=== PATIENT | male | born 1990 | race Caucasian/White ===

== ENCOUNTER 2025-05-14 11:16 | Outpatient (AMB) | payer OTHER, SELFPAY ==
--- NOTE | 2025-05-14 11:36 | MHC.PC.OV ---
Vital Signs 05/14/25 11:52 Height 5 ft 10.75 in Weight 250 lb 0.4 oz BMI 35.1 BP 129/59 L Blood Pressure Location Rt brachial Pulse 65 Pulse Source Pulse Oximeter Temp 98.2 F Intake Visit Reasons: Office visit, [employer]IST Intake Note: no issues Allergies Seasonal Allergies Allergy (Intermediate, Verified 05/14/25 16:43) Sneezing Medication List - Last Reconciled 05/14/25 by Angi Epps PA-C No Known Home Meds Dental Screening Dental Screen Date: 05/14/25 Did you have a dental visit in the last 12 months?: Yes Did you have a dental problem in the last 6 months where you did not have access to dental care?: No Was dental information given to patient?: Patient has dentist HPI HPI Comments History of Present Illness Details History of Present Illness The patient is a 34 year old male presenting for a physical exam and medical clearance required by the [facility]. The requirement stems from an incident last year where he received an OUI after driving under the influence following consumption of what he believed to be a counterfeit Percocet, which was later found to contain fentanyl. This resulted in an overdose requiring four doses of Narcan to revive him in the ambulance. The patient reports a history of substance use but states he has been sober for approximately two years and has not smoked marijuana in two years. He is currently attending 16 weeks of behavioral classes on [employer] as part of his requirements. This is his first visit with a doctor in approximately 10 years. Regarding family history, his paternal grandmother had a brain cancer tumor, and his brother from an overdose. He denies any known family history of colon cancer, breast cancer, or prostate cancer. Social History - Substance Use Alcohol: The patient obtained an OUI from drinking last year. - Substance Use Other: He had an unintentional overdose from a counterfeit Percocet (fentanyl) last year. 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 - Tobacco/Nicotine: He denies smoking marijuana for the past two years. - Exercise: The patient reports going to the gym. [facility] Medical History Healthcare maintenance Annual physical exam History of substance use Social History Alcohol intake: never Patient Tobacco Use Status: Never used Tobacco e-Cigarette/Vaping Use: Never Used Second Hand Smoke Exposure: No Questionnaire PHQ-9 Over the last 2 weeks, how often have you been bothered by any of the following problems? 1. Little interest or pleasure in doing things: not at all 2. Feeling down, depressed, or hopeless: not at all 3. Trouble falling or staying asleep, or sleeping too much: not at all 4. Feeling tired or having little energy: not at all 5. Poor appetite or overeating: not at all 6. Feeling bad about yourself - or that you are a failure or have let yourself or your family down: not at all 7. Trouble concentrating on things, such as reading the newspaper or watching television: not at all 8. Moving or speaking so slowly that other people could have noticed. Or the opposite - being so fidgety or restless that you have been moving around a lot more than usual: not at all 9. Thoughts that you would be better off or of hurting yourself in some way: not at all Total score: 0 Depression Screening Interpretation: Negative Depression Screening Done: Yes 90515 - PHQ-9 Billing: Yes Source: Developed by Drs. Ziggy Latham, Awilda Villegas, Justus Gonzalez and colleagues, with an educational janice from [employer]. Thrive Questionnaire Date Thrive assessed: 05/14/25 I am a: Patient What is your living situation today?: I have a steady place to live Within the past 12 months, did the food you bought not last and you didn't have the money to get more?: Never true Within the past 12 months, did you worry whether your food would run out before you got money to buy more?: Never true Do you have trouble paying for medicines?: No Do you have trouble getting transportation to medical appointments?: No Do you have trouble paying your heating and electricity bill?: No Do you have trouble taking care of your child, family member or friend?: No Do you have trouble with day-to-day activities such as bathing, preparing meals, shopping, managing finances, etc.?: No Are you currently unemployed and looking for a job?: No Are you interested in more education?: No THRIVE Score: 0 AUDIT C Alcohol Use Questionnaire (AUDIT-C) 1. How often do you have a drink containing alcohol?: Never 2. How many drinks containing alcohol do you have on a typical day when you are drinking?: 1 or 2 3. How often do you have six or more drinks on one occasion?: Never Total Score: 0 Score Reviewed/Action Taken: No MARLEEN-7 AMB Questionnaire MARLEEN-7 Date MARLEEN - 7 assessed: 05/14/25 Feeling nervous, anxious, or on edge: 0 = Not at all Not being able to stop or control worryin = Not at all Worrying too much about different things: 0 = Not at all Trouble relaxin = Not at all Being so restless that it is hard to sit still: 0 = Not at all Becoming easily annoyed or irritable: 0 = Not at all Feeling afraid as if something awful might happen: 0 = Not at all Total MARLEEN-7 score (0-4 normal; 5-9 mild; 10-14 moderate; 15-21 severe): 0 Source: Developed by Drs. Ziggy Latham, Awilda Villegas, Justus Gonzalez and colleagues, with an educational janice from [employer]. MARLEEN-7 Assessment Billing MARLEEN-7 Assessment Tool: MARLEEN-7 Assessment 38394 Review of Systems Narrative Review of Systems - Constitutional: Denies unintentional weight loss. - Cardiovascular: Denies chest pain. - Respiratory: Denies shortness of breath. - Gastrointestinal: Denies black or bloody stools. Const All systems reviewed & are unremarkable except as noted in HPI and below Physical exam (Primary Care) Vital Signs: Last Vital Signs Temp 98.2 F 05/14/25 11:52 Pulse 65 05/14/25 11:52 BP 129/59 L 05/14/25 11:52 Care Plan Goal for BP management: <140/90 at Goal BMI result Body Mass Index 35.1 BMI Assessment/Plan discussion: High BMI High, discussed plan: lifestyle, weight reduction, dietary, physical activity, alcohol moderation and other Tobacco/Smoking Status: Tobacco use Status Patient Tobacco Use Status Never used Tobacco 05/14/25 11:45 e-Cigarette/Vaping Use Never Used 05/14/25 11:45 PHQ-9: PHQ-9 Score PHQ-9: Total score 0 05/14/25 16:47 Depression Screening Interpretation: Negative Thrive Assessment: Date of Thrive Assessment Date Thrive assessed 05/14/25 05/14/25 11:56 Narrative Physical Exam Appearance: Alert. Oriented X3. No acute distress. Head: Normal external exam. Normocephalic. Atraumatic. Eyes: Pupils are equal, round, and reactive to light. Extraocular movements intact. Conjunctiva and sclera normal. Eyelids normal. Ears: External auditory canal normal. Tympanic membranes normal. Throat: Pharynx normal. Uvula midline. Moist mucous membranes. Neck: Normal inspection. Neck supple. Full range of motion. No adenopathy. Thyroid Normal. No meningeal signs. No neck mass noted. Cardiovascular: Normal heart rate and rhythm. Heart sound normal. No murmurs noted. Pulses normal throughout. Respiratory: No respiratory distress. Painless inspiration. Breath sounds normal. No wheezes/rales/rhonchi noted. Chest nontender. No accessory muscle usage noted or decreased air movement noted. Abdomen: Soft and nontender. Bowel sounds normal in all 4 quadrants. No distention noted. No organomegaly noted. No visible injury noted. Back: No costovertebral angle tenderness. Full range of motion noted. Skin: Skin warm and dry. Normal skin color. Normal skin turgor. No rashes/lesions/lacerations noted. Extremities: No lower extremity edema. Extremities exhibit normal range of motion. Extremities nontender. Neuro: Oriented X 3. No motor deficit. No sensory deficit. Reflexes normal. Office Procedures Flu Questionnaire Does the patient have a severe egg allergy?: No Does the patient have severe life threatening allergies?: No Does the patient have a fever or illness today?: No Has the patient ever had Guillain-Hot [place] Syndrome?: No Has the patient ever had any past reaction to a flu shot?: No Immunizations Fluarix [id number] (PF) 45 mcg (15 mcg x 3)/0.5 mL IM syringe Performing Provider: Angi Epps PA-C Performing Location[facility] [place] [facility] Documented (not given) by: Trisha Genao on 05/14/25 11:57 Reason Not Given: Patient Refused Coding Level of Care Code New Pt Prev Care 18-39yr(75348 Add On Preventative Visit Only Diagnoses Annual physical exam Z00.00 Healthcare maintenance Z00.00 History of substance use Z87.898 Additional Codes MARLEEN-7 Assessment Billing - MARLEEN-7 Assessment Tool: MARLEEN-7 Assessment 71564 ([id number]) PHQ-9 - 46450 - PHQ-9 Billing: Yes ([id number]) Time Spent (min) 60 Assessment & Plan Assessment & Plan (1) Annual physical exam: Code(s): Z00.00 - Encounter for general adult medical examination without abnormal findings Category: Medical Plan: The patient requires completion of a medical clearance form and a drug screen for the [facility]. Will order a Drug panel urine drug screen, to be confirmed which is needed. Additionally, a referral will be made for a substance abuse evaluation. Will also write a letter of medical clearance as required. (2) Healthcare maintenance: Code(s): Z00.00 - Encounter for general adult medical examination without abnormal findings Category: Medical Plan: Comprehensive fasting lab work will be ordered to establish baseline health status, as the patient has not seen a doctor in about 10 years. Labs will include a CBC, CMP, hemoglobin A1c, cholesterol panel, thyroid studies, PSA, vitamin B12, vitamin D, urine microalbumin, magnesium, and an ethanol level. A follow-up appointment is scheduled in three months to review results and for ongoing care. (3) History of substance use: Comment: Sober 2 years; Code(s): Z87.898 - Personal history of other specified conditions Category: Medical Plan: Patient has been sober for 2 years and will need a substance abuse evaluation and a letter of recidivism; Will refer to Mahendra Lay works for [facility] [phone] and Cristhian Fregoso works for [facility] [phone] (Office); [phone] Plan Plan Patient was informed and verbally consented to the use of an ambient scribe for clinic note documentation during this visit. 1. Physical Exam For [facility] Clearance The patient requires completion of a medical clearance form and a drug screen for the [facility]. Will order a Drug panel urine drug screen, to be confirmed which is needed. Additionally, a referral will be made for a substance abuse evaluation. Will also write a letter of medical clearance as required. 2. Health Maintenance Comprehensive fasting lab work will be ordered to establish baseline health status, as the patient has not seen a doctor in about 10 years. Labs will include a CBC, CMP, hemoglobin A1c, cholesterol panel, thyroid studies, PSA, vitamin B12, vitamin D, urine microalbumin, magnesium, and an ethanol level. A follow-up appointment is scheduled in three months to review results and for ongoing care. Discussion Notes I discussed with the patient the requirements for his [facility] medical clearance, which includes a drug screen and a substance abuse evaluation. I informed him that I will order a comprehensive urine drug screen (either 12- or 14-panel) and basic blood work, which must be done fasting. I am referring him to an addiction medicine provider, likely at [facility], for the required substance abuse evaluation and will attempt to expedite this. I also agreed to write the necessary medical clearance letter once he provides all the required forms. We scheduled a follow-up visit in three months to review all results. Orders: Orders Complete Blood Count Auto Diff 05/14/25 Z.00 - Encounter for general adult medical examination without abnormal findings Comprehensive [place]. Panel Fast 05/14/25 Z. - Encounter for general adult medical examination without abnormal findings Erythrocyte Sedimentation Rate 05/14/25 Z.00 - Encounter for general adult medical examination without abnormal findings Hemoglobin A1c 05/14/25 Z.00 - Encounter for general adult medical examination without abnormal findings Drug Screen Urine 05/14/25 Z87.898 - Personal history of other specified conditions Vitamin B12 and Folate 05/14/25 Z. - Encounter for general adult medical examination without abnormal findings Vitamin D 25-OH Total 05/14/25 Z.00 - Encounter for general adult medical examination without abnormal findings Magnesium 05/14/25 Z. - Encounter for general adult medical examination without abnormal findings Influenza [id number] Immunization 05/14/25 Z23 - Encounter for immunization C Reactive Protein 05/14/25 Z00.00 - Encounter for general adult medical examination without abnormal findings Lipid Panel 05/14/25 Z. - Encounter for general adult medical examination without abnormal findings UA CC w/rflx Micro + Cult 05/14/25 Z00.00 - Encounter for general adult medical examination without abnormal findings TSH reflex Free T4 05/14/25 Z00.00 - Encounter for general adult medical examination without abnormal findings PSA,Total (Free>4and<10) 05/14/25 Z00.00 - Encounter for general adult medical examination without abnormal findings Microalbumin, Random (w Creat) 05/14/25 E11.9 - Type 2 diabetes mellitus without complications Referrals Addiction Medicine Referral Z87.898 - Personal history of other specified conditions Addiction Medicine Referral Z87.898 - Personal history of other specified conditions Patient Instructions: Patient Instructions - Please send a screenshot of all the forms required by the [facility] so I can complete the necessary letters for you. - Go to the lab for blood work. You must be fasting, meaning nothing to eat or drink except water before the test. - I will be referring you for a substance abuse evaluation. You will be contacted to schedule this appointment. - You have a follow-up appointment scheduled in three months to go over your lab results and check on your progress.
[2025-05-14 11:52] VITALS: BP 129/59; PULSE 65; TEMP 36.8; BMI 35.1
== END 2025-05-14 12:17 | disposition home or self-care (01) ==
LOC: HO.HMCSH 11:16
PROVIDERS: PCP Physician Assistant Medical; Visit Provider Physician Assistant Medical
DX: Z00.00 Encounter for general adult medical examination without abnormal findings (principal); Z87.898 Personal history of other specified conditions

== ENCOUNTER → 2025-05-14 11:16 | Outpatient (BNVA) | payer OTHER, SELFPAY | PROVIDERS: PCP Physician Assistant Medical; Visit Provider Physician Assistant Medical | DX: Z28.21 Immunization not carried out because of patient refusal (principal); Z00.00 Encounter for general adult medical examination without abnormal findings; Z87.898 Personal history of other specified conditions | CPT/HCPCS: 90471; 96127; 99385 ==

== ENCOUNTER 2025-05-19 06:44 | Outpatient (REF) | payer OTHER, SELFPAY ==
--- OUTSIDE RECORDS SUMMARY | 2025-05-19 06:47 | XMS_ITS | Clinical Summary ---
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 Role Phone Unavailable Primary Care Provider Unavailabl e Social History Tobacco Use Types Packs/Day Years Used Date Smoking Tobacco: Never Assessed Sex and Gender Information Value Date Recorded Sex Assigned at Not on file Legal Sex Male 1:17 PM EDT Gender Identity Not on file Sexual Orientation Not on file Plan of Treatment Health Maintenance Due Date Last Done Comments Depression Screening 1990 HIV Screening 1990 SDOH Screening 1990 Disability Screening 1990 Alcohol/Substance Use Screening 2002 Tobacco Screening 2002 Family Planning (PISQ) 2005 HPV Vaccines (1 - Male 3-dos e series) 2005 Hepatitis C Screening 2008 DTaP/Tdap/Td Vaccines (1 - Tdap) 2009 Hepatitis B Vaccines (1 of 3 - 19+ 3-dose series) 2009 COVID-19 Vaccine (1 - 2024-2 6 season) 2025 Influenza Vaccine (#1) 2025 Zoster Vaccines (1 of 2) 2040 RSV Patients and Pa tients Aged 60 years or older (1 - 1-dose 75+ series) 2065 HIB Vaccines Aged Out No longer eligi ble based on patient's age to complete this topic Hepatitis A Vaccines Aged Out No long er eligible based on patient's age to complete this topic IPV Vaccines Aged Out No longer eligi ble based on patient's age to complete this topic Meningococcal B Vaccine Aged Out No l onger eligible based on patient's age to complete this topic Meningococcal Vaccine Aged Out No liz evelyn eligible based on patient's age to complete this topic Pneumococcal Vaccine: Pediat rics (0 to 5 Years) and At-Risk Patients (6 to 49) Years Aged Out No longer eligible b ased on patient's age to complete this topic RSV under 20 months Aged Out No longe r eligible based on patient's age to complete this topic Rotavirus Vaccines Aged Out No longer eligible based on patient's age to complete this topic Insurance [facility] 2
--- OUTSIDE RECORDS SUMMARY | 2025-05-19 06:47 | XMS_ITS | Clinical Summary ---
Author Organization [address] [facility] Address [address] [place] [address] Phone Care Team Providers Care Booky Name Role Phone Christina Page MD Primary Care Provider Surgical History Surgery Date Site/Laterality Comments OTHER SURGICAL HISTORY PROCEDURE: DENIES PREVIOUS SURGERY Medical History Medical History Date Comments Allergic rhinitis 01/25/2008 DX:Allergic rh initis Overweight(278.02) 04/14/2010 DX:Overweight (278.02) Marijuana use 08/15/2014 DX:Marijuana use Family History Medical History Relation Name Comments Diabetes Mother Hypertension Mother Other: hyperlipidemia Mother Colon cancer Uncle 1 Relation Name Status Comments Father Alive Mother Alive Uncle 1 Uncle 2 Social History Tobacco Use Types Packs/Day Years Used Date Smoking Tobacco: Never Smokeless Tobacco: Never Alcohol Use Standard Drinks/Week Comments Yes 0 (1 standard drink = 0.6 oz pur e alcohol) Sex and Gender Information Value Date Recorded Sex Assigned at Not on file Legal Sex Male 2:13 AM EST Gender Identity Not on file Sexual Orientation Not on file Plan of Treatment Upcoming Encounters Date Type Department Care Team (Late st Contact Info) Description 09/05/2025 3:00 PM EDT Office Visit Adult Medicine [facility] [address] [place] [phone] Christina Page MD [address] [place] [address] Health Maintenance Due Date Last Done Comments Hepatitis B Vaccines (1 of 3 - 19+ 3-dose series) 2009 Pneumococcal Vaccine: Pediatrics (0 to 5 Years) and At-Risk Patients (6 to 49 Years) (1 of 2 - PCV) 2009 HPV Vaccines (1 - 3-dose SCD M series) 2017 DTaP,Tdap,and Td Vaccines (2 - Td or Tdap) 03/12/2018 03/12/2008 Depression Screening 05/31/2024 HIV Screening 11/20/2024 Hepatitis C Screening 11/20/2024 Social Influencers of Health Screening 11/20/2024 COVID-19 Vaccine (1 - 2024-2 6 season) 2025 Influenza Vaccine (#1) 2025 0, 07/03/2009, 03/12/2008 RSV Immunization Adult Patients (1 - 1-dose 75+ series) 2065 Meningococcal ACWY Vaccine Completed 03/12/2008 HIB Vaccines Aged Out No longer eligi ble based on patient's age to complete this topic Hepatitis A Vaccines Aged Out No long er eligible based on patient's age to complete this topic IPV Vaccines Aged Out No longer eligi ble based on patient's age to complete this topic MMR Vaccines Aged Out No longer eligi ble based on patient's age to complete this topic Meningococcal B Vaccine Aged Out No l onger eligible based on patient's age to complete this topic RSV Immunization Patients Under 20 months Aged Out No longer eligible b ased on patient's age to complete this topic Varicella Vaccines Aged Out No longer eligible based on patient's age to complete this topic Insurance Care Teams Booky Relationship Specialty Start Date End Date Christina Page MD [address] [place] [address] PCP - General Internal Medicine 11/06/24
[2025-05-19 11:42] LABS: Appearance Urine Clear; Glucose Urine UA Negative (Negative); PH 6.5 (5.0-9.0); Specific Gravity - Urine 1.015 (1.005-1.025)
[2025-05-19 11:49] LABS: MANUAL DIFF FLAG NO
[2025-05-19 11:51] LABS: Cannabinoid Screen Urine Not Detected (Not Detect); Hematocrit 41.2 % (42.0-52.0); Hemoglobin 13.8 g/dl (14.0-18.0); Imm Gran Abs Auto 0.00 X10*3/uL (0.00-0.03); Imm Gran Pct Auto 0.0 % (0.0-0.4); Lymphocytes Absolute Auto 1.6 X10*3/uL (1.2-4.9); Mean Corpuscular HGB Conc 33.5 g/dl (31.0-36.0); Mean Corpuscular Hemoglobin 29.4 pg (27.0-33.0); Mean Corpuscular Volume 87.8 fL (80.0-98.0); NRBC Abs Auto 0.000 X10*3/uL (0.0-0.012); NRBC Pct Auto 0.0 /100WBC (0.0-0.2); Platelet Count 274 X10*3/uL (160-400); Red Blood Count 4.69 X10*6/uL (4.60-5.80); White Blood Count 3.6 X10*3/uL (4.8-10.8)
[2025-05-19 12:27] LABS: Microalbum/Creatinine Ratio Ur 3.8 ug/mg cr (<30)
[2025-05-19 12:28] LABS: Alanine Aminotransferase 39 U/L (0-40); Albumin Level 4.7 g/dL (3.5-5.0); Alkaline Phosphatase 57 U/L (39-117); Anion Gap 13 (12-20); Aspartate Amino Transferase 44 U/L (5-37); Blood Urea Nitrogen 15 mg/dL (9-16); Calcium 9.5 mg/dL (8.4-10.2); Carbon Dioxide 25 mmol/L (22-29); Chloride 107 mmol/L (96-108); Cholesterol 147 mg/dL (<200); Estimated Glomerular Filt Rate > 60; HDL Cholesterol 45 mg/dL (>40); Magnesium 2.1 mg/dL (1.6-2.6); Potassium 3.9 mmol/L (3.3-5.1); Sodium 141 mmol/L (135-145); Total Protein 7.3 g/dL (6.5-8.0); Triglycerides 58 mg/dL (<150)
[2025-05-19 12:32] LABS: PSA,Total (Free>4and<10) 0.60 ng/mL (0.00-4.00)
[2025-05-19 12:45] LABS: Folate 6.0 ng/mL (> or = 4.0); Vitamin B12 421 pg/mL (200-900)
== END 2025-05-19 06:45 | disposition home or self-care (01) ==
LOC: HO.HMGCLDS 06:44
PROVIDERS: PCP Physician Assistant Medical; Visit Provider Physician Assistant Medical
DX: Z00.00 Encounter for general adult medical examination without abnormal findings (principal); E11.9 Type 2 diabetes mellitus without complications; Z87.898 Personal history of other specified conditions
CPT/HCPCS: 80053; 80061; 80307; 81003; 82043; 82306; 82570; 82607; 82746; 83036; 83735; 84153; 84443; 85025; 85652; 86140